=== PATIENT | male | born 1990 | race Caucasian/White ===

== ENCOUNTER 2019-09-30 16:00 | Emergency (ER) | payer MEDICARE, MEDICAID, SELFPAY ==
[2019-09-30] VITALS (15 sets, daily range): BP systolic 106–123; BP diastolic 64–89; PULSE 64–98; RESP 12–19; TEMP 37.1; O2SAT 93–99
--- NOTE | ~2019-09-30 | XR_ITS ---
EXAMINATION: XR chest 2V 09/30/2019 17:25 INDICATION: Sternal chest pain with shortness of breath PROCEDURE: 2 view chest COMPARISON: 12/15/2011 FINDINGS: The lungs are clear. The cardiomediastinal silhouette is within normal limits. There are no pleural effusions. There is no pneumothorax suspected. IMPRESSION: 1: NO ACUTE CARDIOPULMONARY DISEASE. Reviewed, dictated and finalized at location A.
--- NOTE | 2019-09-30 16:01 | ECG_ITS ---
Measurements Intervals [place] Rate: 82 P: -24 VT: 117 QRS: -26 QRSD: 76 T: -27 QT: 341 QTc: 400 Interpretive Statements SINUS OR ECTOPIC ATRIAL RHYTHM WITH SHORT VT INTERVAL INFERIOR INFARCT, AGE INDETERMINATE ABNORMAL ECG Electronically Signed On 09-30-2019 16:33:07 CDT by Brooks Allen D.O.
[2019-09-30 16:33] LABS: Basophils Absolute Auto 0.1 K/mm3 (0.0-0.1); Basophils Percent Auto 1.2 % (0.2-1.2); Eosinophils Absolute Auto 0.3 K/mm3 (0-0.3); Eosinophils Percent Auto 3.7 % (0-4.4); Hematocrit 47.9 % (42.0-52.0); Hemoglobin 16.6 g/dL (14.0-18.0); Immature Granulocyte Absolute 0.03 K/mm3 (0.00-0.031); Immature Granulocyte Percent A 0.4 % (0-0.5); Lymphocytes Absolute Auto 2.83 K/mm3 (0.9-3.2); Lymphocytes Percent Auto 37.5 % (18.3-44.2); Mean Corpuscular HGB Conc 34.7 g/dl (32-36); Mean Corpuscular Hemoglobin 29.9 pg (26-34); Mean Corpuscular Volume 86.2 fl (80-100); Monocytes Absolute Auto 0.6 K/mm3 (0.1-0.6); Monocytes Percent Auto 8.2 % (2.6-8.5); Neutrophils Absolute Auto 3.7 K/mm3 (1.3-6.7); Platelet Count Result 175 k/mm3 (150-375); Red Blood Count 5.56 M/mm3 (4.6-6.20); Red Cell Distribution Width 12.4 % (11.5-14.5); White Blood Count 7.6 K/mm3 (4.5-10.0)
--- NOTE | 2019-09-30 17:12 | ED.CHESTPAIN ---
HPI - Chest Pain General Chief Complaint: Chest Pain <Shelly Hernandez MD - Last Filed: 09/30/19 18:47> Stated Complaint: SOB, CHEST PAIN, [facility] SENT ME <Shelly Hernandez MD - Last Filed: 09/30/19 18:47> Time Seen by Provider: 09/30/19 17:03 <Shelly Hernandez MD - Last Filed: 09/30/19 18:47> History of Present Illness HPI narrative: Patient presents with his mother for chest pain for a couple days. He has had this before and it was diagnosed as chest wall. He has known GERD and takes Pepcid 20 mg twice a day. He says his chest pain is a 9 out of 10. He takes his whole hand and runs it up and down the middle of his chest. He said it does not go any place else. He has an occasional cough. He has no fever chills or sweats. His brother and mother both have asthma. He has had no wheezes. 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 He does not smoke cigarettes, drink alcohol, or do drugs. He has had sinus surgery and circumcision. <Shelly Hernandez MD - Last Filed: 09/30/19 18:47> MD complaint: chest pain <Shelly Hernandez MD - Last Filed: 09/30/19 18:47> Pertinent past history: other (Chest wall pain) <Shelly Hernandez MD - Last Filed: 09/30/19 18:47> Onset (ago): day(s) <Shelly Hernandez MD - Last Filed: 09/30/19 18:47> Timing of current episode: episodic <Shelly Hernandez MD - Last Filed: 09/30/19 18:47> Pain location: substernal <Shelly Hernandez MD - Last Filed: 09/30/19 18:47> Pain radiation: none <Shelly Hernandez MD - Last Filed: 09/30/19 18:47> Severity: severe <Shelly Hernandez MD - Last Filed: 09/30/19 18:47> Relieving factors: nothing <Shelly Hernandez MD - Last Filed: 09/30/19 18:47> Exacerbating factors: nothing <Shelly Hernandez MD - Last Filed: 09/30/19 18:47> Associated symptoms: dyspnea <Shelly Hernandez MD - Last Filed: 09/30/19 18:47> Treatment prior to arrival: none <Shelly Hernandez MD - Last Filed: 09/30/19 18:47> Risk Factors Coronary artery disease risk factors: none <Shelly Hernandez MD - Last Filed: 09/30/19 18:47> Related Data Home Medications: Home Medications Medication Instructions Recorded Confirmed alprazolam 09/30/19 citalopram [Celexa] 40 mg PO DAILY 09/30/19 metformin 500 mg PO BID 09/30/19 propranolol 09/30/19 sumatriptan succinate mg PO 09/30/19 <Shelly Hernandez MD - Last Filed: 09/30/19 18:47> Allergies/Adverse Reactions: Allergies Allergy/AdvReac Type Severity Reaction Status Date / Time aripiprazole Allergy Mild Confusion Verified 09/30/19 16:01 cefaclor Allergy Mild Rash Verified 09/30/19 16:01 gabapentin Allergy Mild Rash Verified 09/30/19 16:01 <Shelly Hernandez MD - Last Filed: 09/30/19 18:47> Review of Systems Review of Systems: Narrative: CONSTITUTIONAL: Denies fever, chills, or sweats. EYES: Denies visual changes, redness, or discharge. ENT: Denies rhinorrhea, congestion, sore throat, or otalgia. CARDIOVASCULAR: He has chest pain, but not palpitations, or edema. RESPIRATORY: Occasional cough. Dyspnea. GASTROINTESTINAL: A little bit of abdominal pain, but not nausea, vomiting, or diarrhea. GENITOURINARY: Denies dysuria or hematuria. SKIN: Denies rash or itching. MUSCULOSKELETAL: Denies back pain, joint pain, or myalgia. NEUROLOGIC: Denies headache, numbness, or weakness. . <Shelly Hernandez MD - Last Filed: 09/30/19 18:47> All systems reviewed & are unremarkable except as noted in HPI and below <Shelly Hernandez MD - Last Filed: 09/30/19 18:47> [facility] Past Medical History Medical History: Medical History Chronic back pain Costochondritis GERD (gastroesophageal reflux disease) <Shelly Hernandez MD - Last Filed: 09/30/19 18:47> Surgical History Surgical History: Surgical History History of circumcision History of sinus surgery
[2019-09-30 17:25] LABS: Anion Gap 16.1 mmol/L (7-16); Blood Urea Nitrogen 14 mg/dL (9-20); Calcium 9.7 mg/dL (8.4-10.2); Carbon Dioxide 24 mmol/L (22-30); Chloride 97 mmol/L (98-107); Estimated CRCL calculation 111 ml/min; Estimated Glomerular Filt Rate > 60; Glucose 403 mg/dL (75-110); Partial Thromboplastin Time 22.5 SECONDS (22.3-36.8); Potassium 4.1 mmol/L (3.4-5.0); Sodium 133 mmol/L (137-145)
[2019-09-30 17:37] LABS: Troponin I < 0.012 ng/mL (0.000-0.034)
[2019-09-30 17:42] LABS: NT Pro B Type Natriuretic Pept 50 PG/ML (5-100)
[2019-09-30] MEDS: KETOROLAC 15 MG/ML VIAL (*BKC) IV PUSH (18:40)
[2019-09-30] MEDS: SODIUM CHLORIDE 0.9% IV 1,000 ML 999 ML IV CONT (18:41)
[2019-09-30] MEDS: INSULIN HUMAN REGULAR (*BKC) 100 UNITS/ML 10 UNITS SUB-Q (18:41)
[2019-09-30] MEDS: BELLADONNA ALK/PHENOB ELIX 10 ML, MAG HYDROX/ALUMINUM HYD/SIMETH 30 ML, LIDOCAINE HCL 2... PO (18:41)
[2019-09-30 19:53] LABS: Troponin I < 0.012 ng/mL (0.000-0.034)
[2019-09-30 19:59] LABS: Glucose Point of Care 324 (65-105)
== END 2019-09-30 21:05 | disposition home or self-care (01) ==
PROVIDERS: Emergency Medicine; Emergency Provider Emergency Medicine
DX: R07.89 Other chest pain (principal); K21.9 Gastro-esophageal reflux disease without esophagitis; E11.65 Type 2 diabetes mellitus with hyperglycemia; Z79.84 Long term (current) use of oral hypoglycemic drugs; R06.02 Shortness of breath
CPT/HCPCS: 36415; 71046; 80048; 82948; 83880; 84484; 85025; 85610; 85730; 93005; 96361; 96374; 99284; A9270; J1815; J1885; J7030